=== PATIENT | female | born 2000 | race Caucasian/White ===

== ENCOUNTER 2020-04-05 09:41 | Outpatient (CLI) | payer MEDICAID ==
--- NOTE | 2020-04-05 10:58 | ULT ---
LIMITED LEFT BREAST ULTRASOUND: HISTORY: A 19-year-old female with pain at the 3 o'clock position of the left breast. FINDINGS/IMPRESSION: Sonographic evaluation of the left breast was performed from the 1 through 5 o'clock positions. No a bnormality is seen. Further evaluation (including biopsy) should be based on clinical findings/suspi cion. POS: OFF
== END 2020-04-05 09:42 | disposition home or self-care (01) ==
LOC: BICULT 09:41
PROVIDERS: ATTEND Physician Assistant
DX: N64.4 Mastodynia (principal)